=== PATIENT | female | born 1945 | race American Indian/Alaskan Native ===

== ENCOUNTER 2016-09-07 10:51 | Outpatient (CLI) | payer MEDICARE ==
[2016-09-07 11:36] LABS: Mean Corpuscular HGB Conc 31 % (30-34); Mean Corpuscular Volume 75 fl (79-97); Platelet Count 292 K/mm3 (140-440); Red Blood Count 4.99 M/mm3 (3.65-5.03); White Blood Count 9.8 K/mm3 (4.5-11.0)
[2016-09-07 11:43] LABS: Hematocrit 37.4 % (30.3-42.9); Hemoglobin 11.4 gm/dl (10.1-14.3); Mean Corpuscular Hemoglobin 23 pg (28-32); Red Cell Distribution Width 28.2 % (13.2-15.2)
[2016-09-07 11:53] LABS: Alanine Aminotransferase 12 units/L (7-56); Albumin/Globulin Ratio 0.8 %; Alkaline Phosphatase 100 units/L (35-129); Anion Gap 14 mmol/L; BUN/Creatinine Ratio 21.25; Bilirubin,Total 0.6 mg/dL (0.1-1.2); Blood Urea Nitrogen 17 mg/dL (7-17); Calcium 9.6 mg/dL (8.4-10.2); Carbon Dioxide 35 mmol/L (22-30); Chloride 94.9 mmol/L (98-107); Cholesterol 139 mg/dL (50-199); Glucose 111 mg/dL (65-100); HDL Cholesterol 58 mg/dL (40-59); LDL Cholesterol,Direct 73 mg/dL (50-130); Potassium 4.4 mmol/L (3.6-5.0); Sodium 139 mmol/L (137-145); Total Protein 9.3 g/dL (6.3-8.2); Triglycerides 44 mg/dL (2-149)
[2016-09-08 17:26] LABS: Vitamin D, 25-OH, Total 30 ng/mL (30-100)
== END 2016-09-07 10:52 | disposition home or self-care (01) ==
LOC: LAB 10:51
PROVIDERS: ATTEND Internal Medicine Nephrology
DX: E11.22 Type 2 diabetes mellitus with diabetic chronic kidney disease (principal); N18.3 Chronic kidney disease, stage 3 (moderate)
CPT/HCPCS: 36415; 80053; 80061; 82043; 82306; 83036; 83970; 85027

== ENCOUNTER 2016-10-26 08:58 | Outpatient (CLI) | payer MEDICARE ==
--- NOTE | 2016-10-26 12:17 | Mammography Report ---
Screening left mammogram: Right mastectomy. Routine views of the left breast demonstrates an intermediate density fibroglandular pattern. No suspicious findings. No change compared to prior study of December 23, 2013. CAD used. Impression: Stable left breast pattern post right mastectomy. Recommendation: Annual mammogram followup. BI-RADS CATEGORY: 1 = Negative ACR BI-RADS MAMMOGRAPHIC CODES: 0 = Needs additional imaging evaluation; 1 = Negative; 2 = Benign; 3 = Probably benign; 4 = Suspicious; 5 = Malignant; 6 = Known biopsy-proven malignancy COMMENT: 1. Dense breast tissue, i.e., adenosis, fibrocystic changes, etc., may obscure an underlying neoplasm. 2. Approximately 10% of cancers are not detected with mammography. 3. A negative mammography report should not delay biopsy if a clinically suspicious mass is present.
== END 2016-10-26 08:59 | disposition home or self-care (01) ==
LOC: MAMMO 08:58
PROVIDERS: ATTEND Internal Medicine
DX: Z12.31 Encounter for screening mammogram for malignant neoplasm of breast (principal)
CPT/HCPCS: G0202-52

== ENCOUNTER 2017-10-25 13:00 | Outpatient (CLI) | payer MEDICARE ==
[2017-10-25 13:31] LABS: Bacteria,Urine 2+ /HPF (Negative); Bilirubin,Urine NEG (Negative); Blood,Urine SM (Negative); Color,Urine Yellow (Yellow); Hyaline Casts,Urine 1 /LPF; Protein,Urine <15 mg/dL mg/dL (Negative); Urobilinogen,Urine < 2.0 mg/dL (<2.0)
[2017-10-25 13:36] LABS: Creatinine,Urine 126.4 mg/dL (0.1-20.0)
[2017-10-25 13:40] LABS: Microalbumin/Creatinine Ratio 9.4 ug/mg
[2017-10-25 13:41] LABS: BUN/Creatinine Ratio 23; Blood Urea Nitrogen 18 mg/dL (7-17); Calcium 9.5 mg/dL (8.4-10.2); Hemolysis Index 0
== END 2017-10-25 13:01 | disposition home or self-care (01) ==
LOC: LAB 13:00
PROVIDERS: ATTEND Internal Medicine Nephrology
DX: I13.0 Hypertensive heart and chronic kidney disease with heart failure and stage 1 through stage 4 chronic kidney disease, or unspecified chronic kidney disease (principal); N18.3 Chronic kidney disease, stage 3 (moderate); I50.9 Heart failure, unspecified; E11.22 Type 2 diabetes mellitus with diabetic chronic kidney disease
CPT/HCPCS: 36415; 80048; 81001; 82043; 83970